=== PATIENT | male | born 1975 | race Caucasian/White ===

== ENCOUNTER 2022-08-18 14:27 | Emergency (ER) | payer BC ==
[~2022-08-18] VITALS: Ht 180.3 cm; Wt 83.9 kg
[2022-08-18 14:52] VITALS: BP 132/80
[2022-08-18] MEDS ORDERED: FLUORESCEIN OPTH STRIP 1 MG OP ONE (15:35)
[2022-08-18] MEDS ORDERED: TETRACAINE 1% 2 ML AMP INJ ONE (15:35)
[2022-08-18] MEDS ORDERED: HYDROcodone/APAP 5/325 MG 1 TAB TAB PO ONE (15:45)
[2022-08-18] MEDS ORDERED: KETOROLAC 30 MG/ML VIAL IM ONE (15:45)
[2022-08-18] MEDS ORDERED: TETRACAINE HCL/PF 0.5% OPTH 4 ML BTL ONE (15:47)
[2022-08-18] MEDS ORDERED: TETRACAINE HCL/PF 0.5% OPTH 4 ML BTL OP ONE (16:05)
--- NOTE | 2022-08-18 17:00 | NUR ---
PATIENT PRESENTS TO ED WITH EYE PAIN . DENIES N/V/D; SKIN IS PINK/WARM/DRY; AAOX4 WITH EVEN AND STEADY GAIT; LUNGS CLEAR BL; HR EVEN AND REGULAR; PT DENIES ANY FEVER, CP, SOB, OR COUGH AT THIS TIME; PATIENT STATES PAIN OF 7/10 AT THIS TIME; VSS; PATIENT POSITIONED FOR COMFORT; HOB ELEVATED; BEDRAILS UP X2; BED DOWN. ER MD MADE AWARE OF PT STATUS.
[2022-08-18] MEDS ORDERED: KETOROLAC 30 MG/ML VIAL ONE (17:10)
[2022-08-18] MEDS ORDERED: HYDROcodone/APAP 5/325 MG 1 TAB TAB ONE (17:10)
[2022-08-18] MEDS ORDERED: ACYC-278 PO (17:32)
[2022-08-18] MEDS ORDERED: ACET-8905 PO (17:32)
[2022-08-18] MEDS ORDERED: NAPR-54 PO (17:32)
[2022-08-18 18:18] VITALS: BP 127/86
--- NOTE | 2022-08-18 18:19 | NUR ---
Patient discharged with v/s stable. Written and verbal after care instructions given and explained. Patient verbalized understanding. Ambulatory with steady gait. All questions addressed prior to discharge. Advised to follow up with PMD.
== END 2022-08-18 18:18 | disposition home or self-care (01) ==
LOC: MED 14:27
DX: B02.30 Zoster ocular disease, unspecified (principal)
CPT/HCPCS: 70450; 99284; J1885